=== PATIENT | male | born 1955 | race Caucasian/White ===

== ENCOUNTER → 2020-02-15 | Outpatient (CLI) | payer SELFPAY ==
[~2020-02-15] MED LIST: IBUP800T19 PO
== END | disposition home or self-care (01) ==
LOC: LAB 08:44
PROVIDERS: ATTEND Registered Nurse
DX: Z01.812 Encounter for preprocedural laboratory examination (principal); Z12.11 Encounter for screening for malignant neoplasm of colon; Z20.828 Contact with and (suspected) exposure to other viral communicable diseases
CPT/HCPCS: U0003-CS

== ENCOUNTER → 2020-02-19 | Day surgery (SDC) | payer SELFPAY ==
[~2020-02-19] MED LIST changes: +IPRATRPIUM/ALBUTEROL 0.5/2.5MG 3 ML NEBU. NEB PRN; +IV RINGERS SOLUTION,LACTATED 1,000 ML IV SCH; +MIDAZOLAM HCL PF 2 MG/2 ML VIAL. IV ONE; +ONDANSETRON PF 4 MG/2 ML VIAL. IV PRN; +PROPOFOL 10,000 MCG/ML (20ML) VIAL IV ONE
[2020-02-19 12:08] VITALS: BP 105/64
--- NOTE | 2020-02-21 14:07 | PATHOLOGY ---
[facility] Accession Number: [id number] . 01 Material submitted: . sigmoid colon - SIGMOID POLYP . 02 Diagnosis: Colon biopsies, sigmoid polyp: - Tubular adenoma. LBQ 02/21/2020 1211 Local . 02 Comment: There is no high grade dysplasia or evidence of malignancy. (JPM/db; 02/21/2020) . 02 Electronically signed: . Omero Hilario MD, Pathologist NPI- [id number] . 01 Gross description: . The specimen is received in formalin, labeled "Ban, Tj", "sigmoid polyp". Received are 2 polypoid segments of pale bermudez soft tissue, measuring 0.2 and 0.5 cm. The specimen is entirely submitted in cassette A1.(SNA; 02/20/2020) AILYN/ANGI 02/20/2020 1759 Local . 02 Pathologist provided ICD-10: D12.5 . 02 CPT . 071661 Specimen Comment: A courtesy copy of this report has been sent to [phone] Specimen Comment: [phone] Specimen Comment: Report sent to / DR BENAVIDEZ Performed at: 01 [facility] [address] [facility] [address], [place] [id number] MD Sage Price MD Phone: [phone] Performed at: 02 [facility] [address] [place], [place] [id number] MD Omero Hilario MD Phone: [phone]
== END | disposition home or self-care (01) ==
LOC: SURG 09:34
PROVIDERS: ATTEND Emergency Medicine
DX: Z12.11 Encounter for screening for malignant neoplasm of colon (principal); D12.5 Benign neoplasm of sigmoid colon; K57.30 Diverticulosis of large intestine without perforation or abscess without bleeding; K63.89 Other specified diseases of intestine; F41.9 Anxiety disorder, unspecified; E07.9 Disorder of thyroid, unspecified; K21.9 Gastro-esophageal reflux disease without esophagitis; Z98.890 Other specified postprocedural states; Z79.899 Other long term (current) drug therapy; Z88.0 Allergy status to penicillin; Z88.8 Allergy status to other drugs, medicaments and biological substances; Z80.0 Family history of malignant neoplasm of digestive organs; Z88.1 Allergy status to other antibiotic agents
CPT/HCPCS: 45385; 88305; J2704; J7120